=== PATIENT | male | born 1965 | race Caucasian/White ===

== ENCOUNTER 2021-05-18 12:56 | Outpatient (CLI) | payer BC, SELFPAY ==
--- NOTE | ~2021-05-18 | US_ITS ---
EXAMINATION: US FNA w image guidance DATE: 05/18/2021 14:08 INDICATION: Left parotid mass. TECHNIQUE: The procedure and its benefits and risks were discussed with the patient. Risks specifically discusse d included bleeding. The patient verbalized understanding of the risks and agreed to proceed. The lef t face was prepped and draped in the usual sterile manner. 1% lidocaine was used for local anesthesi a. 5 passes were made with a 25G needle into the lesion under ultrasound guidance. There were no im mediate complications. FINDINGS: Grayscale ultrasound images demonstrate needles advanced into a 2.0 x 1.6 x 1.3 cm hypoechoic mass in superficial left parotid gland for biopsy. IMPRESSION: 1. Ultrasound-guided fine needle aspiration of a left parotid mass. Reviewed, dictated and finalized at location A.
== END 2021-05-18 12:57 | disposition home or self-care (01) ==
PROVIDERS: PCP Nurse Practitioner Adult Health; Visit Provider Otolaryngology
DX: K11.8 Other diseases of salivary glands (principal)
CPT/HCPCS: 10005; 88173; 88305

== ENCOUNTER 2021-07-29 07:55 | Outpatient (CLI) | payer BC, SELFPAY ==
--- NOTE | 2021-07-29 07:59 | ECG_ITS ---
Measurements Intervals [place] Rate: 77 P: 52 LA: 188 QRS: 9 QRSD: 97 T: 17 QT: 359 QTc: 407 Interpretive Statements SINUS RHYTHM BASELINE ARTIFACT- I, II, AVR NORMAL ECG Electronically Signed On 07-29-2021 8:41:29 [employer]THLET[employer] by [place] D.O.
== END 2021-07-29 07:56 | disposition home or self-care (01) ==
LOC: ANHSURGERY 07:59
PROVIDERS: PCP Nurse Practitioner Adult Health; Visit Provider Otolaryngology
DX: F17.200 Nicotine dependence, unspecified, uncomplicated (principal); Z01.818 Encounter for other preprocedural examination
CPT/HCPCS: 93005

== ENCOUNTER 2021-08-03 02:47 | Day surgery (SDC) | payer BC, SELFPAY ==
[2021-07-27 10:10] VITALS: BMI 36.3
--- NOTE | 2021-07-27 10:16 | SUR.PREOP ---
Report to the Outpatient Waiting Room, entrance under the green pavilion located off [facility], at time 0745 on date _08/03/21 . OR Time: _0945 . - You and your visitor will be asked a series of questions to screen for COVID 19 for your protection. - A mask is required within the hospital. Preoperative COVID Testing Requirements: No Covid test needed - - Patient has positive COVID test result within last 90 days of surgery date. COVID RESULTS FAXED TO [facility] WITH POSITIVE TEST 07/10/21 Patients may have clear liquids (water, carbonated beverages, clear teas, apple juice) until 3 hours prior to surgery with a maximum of 20 ounces. - No food from midnight until time of surgery - Infants may have breast milk until 4 hours before surgery, infant formula 6 hours prior to surgery. - Children will be allowed to drink immediately following surgery. If applicable, please bring a bottle or sippy cup to assist with drinking. Juice, water, soda, and popsicles are readily available. For infants on formula, please bring formula the day of surgery. Pacifiers are allowed. Take the following medications with a SIP of water the morning of surgery: _LEVOTHYROXINE Medications to discontinue per physician __VITAMIN SUPPLEMENTS Date to take last dose____07/30/21 Please no make-up, nail irish, hairspray, perfume, deodorant, or body powder the day of surgery. No jewelry (including any body piercings) or valuables the day of surgery, leave them at home. Please take a shower or bath the night before, or the morning of, surgery with an antibacterial soap. Wear comfortable, loose fitting clothing. Children are encouraged to wear pajamas. - Jewelry must be removed prior to entering the operating room. Rings and piercings that are not removed may be cut off. - The hospital will not accept responsibility for valuables. - Please leave all valuables, including medications, at home the day of surgery. If you are going home after surgery, a licensed electric pile driver operator must drive you home. - NO public transportation without another adult. - We recommend that an adult stay with you for 24 hours following discharge. - We also recommend that you do not drive, make important decision, drink alcoholic beverages, or take any drugs that were not prescribed by your health care provider for at least 24 hours after your discharge time. For Pediatric surgeries, we recommend two adults accompany the child home (only one inside the building at this time). Follow any additional instructions given to you from your surgeon. Telephone instructions given to _CHANDLER VILLA and asked if any additional questions and then verbalized understanding. Patient advised to call surgeon office or pre surgery nurse liaison [phone] if any additional questions.
--- NOTE | 2021-07-27 10:21 | PC.NURSE ---
PT STATES COVID POSITIVE 07/10/21 .NO SYMPTOMS CURRENTLY. TO EMAIL RESULTS OF TESTING AND RELEASE FORM TO [facility].
[2021-08-03] VITALS (8 sets, daily range): BP systolic 108–138; BP diastolic 80–95; PULSE 66–81; RESP 11–20; TEMP 36.3–36.4; O2SAT 93–98
--- NOTE | 2021-08-03 09:11 | P.PNAN_ITS ---
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 Patient Data Age: 55 Gender: M Height: 1.8 m Weight: 118.18 kg Allergies Allergy/AdvReac Type Severity Reaction Status Date / Time iodine Allergy Severe Anaphylaxis Unverified 08/03/21 09:14 Penicillins Allergy Severe Anaphylaxis Verified 08/03/21 09:14 levofloxacin AdvReac Severe Nausea Verified 08/03/21 09:14 codeine AdvReac Mild Nausea Unverified 07/27/21 09:35 SHELLFISH Allergy Severe Anaphylaxis Uncoded 07/27/21 09:35 Home Medications Medication Instructions Recorded Confirmed Type fexofenadine [Mucinex Allergy] 180 mg PO DAILY 07/27/21 07/27/21 History levothyroxine 50 mcg PO DAILY 07/27/21 07/27/21 History tadalafil [Cialis] 5 mg PO DAILY 07/27/21 07/27/21 History zinc sulfate-vitamin C [Vitamin C 1 tablet PO DAILY 07/27/21 07/27/21 History Plus Zinc] EC07/29/21 NML EGG SR 77 Patient hx anesthesia problems: none Family hx anesthesia problems: none Results Review: All pre-operative results and documents have been reviewed as part of the pre-operative evaluation. [facility] Family History Family History Father Acute myocardial infarction Social History Social History Smoking status: Heavy tobacco smoker Tobacco type: cigarettes Additional smoking assessment comments: 1ppd x30 years Alcohol intake: current Substance use: current Substance use type: marijuana Other substance usage details: socially,smoking Living arrangements: with family Spiritual care concerns: No Exam Day of Procedure 08/03/21 09:11
[2021-08-03] MEDS: LACTATED RINGERS 1,000 ML 30 ML IV CONT (09:30)
--- NOTE | 2021-08-03 09:56 | SUR.PREOP ---
0915-PT AWARE SURGEON DELAYS SELF UNDETERMINED AMT OF TIME. STATES HE WILL KEEP S.O. UPDATED. 0945-PT AWARE SURGEON DELAYS SELF ADDITIONAL 1- 1 1/2 HOURS.
--- NOTE | 2021-08-03 11:22 | P.PNAN_ITS ---
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 Patient Data Age: 55 Gender: M Height: 1.8 m Weight: 119.6 kg Last Vital Signs Temp 36.3 C L 08/03/21 08:05 Pulse 81 08/03/21 08:05 Resp 20 08/03/21 08:05 BP 108/80 08/03/21 08:05 Pulse Ox 98 08/03/21 08:05 Allergies Allergy/AdvReac Type Severity Reaction Status Date / Time iodine Allergy Severe Anaphylaxis Unverified 08/03/21 09:14 Penicillins Allergy Severe Anaphylaxis Verified 08/03/21 09:14 levofloxacin AdvReac Severe Nausea Verified 08/03/21 09:14 codeine AdvReac Mild Nausea Unverified 07/27/21 09:35 SHELLFISH Allergy Severe Anaphylaxis Uncoded 07/27/21 09:35 Home Medications Medication Instructions Recorded Confirmed Type fexofenadine [Mucinex Allergy] 180 mg PO DAILY 07/27/21 08/03/21 History levothyroxine 50 mcg PO DAILY 07/27/21 08/03/21 History tadalafil [Cialis] 5 mg PO DAILY 07/27/21 07/27/21 History zinc sulfate-vitamin C [Vitamin C 1 tablet PO DAILY 07/27/21 08/03/21 History Plus Zinc] Patient hx anesthesia problems: none Family hx anesthesia problems: none Results Review: All pre-operative results and documents have been reviewed as part of the pre-operative evaluation. [facility] Surgical History Surgical History (Updated 08/03/21 @ 11:27 by Idris Armstrong MD) H/O inguinal hernia repair H/O myringotomy History of cholecystectomy Family History Family History Father Acute myocardial infarction Social History Social History Smoking status: Heavy tobacco smoker Tobacco type: cigarettes Additional smoking assessment comments: 1ppd x30 years Alcohol intake: current Substance use: current Substance use type: marijuana Other substance usage details: socially,smoking Living arrangements: with family Spiritual care concerns: No Anes - Eval Final PreProcedure Day of Procedure 08/03/21 11:22 Patient weight: obese Heart: regular rate and rhythm Lungs: clear to auscultation Airway: Mallampati scale class 1 Neurological: alert and oriented Last oral intake: >/= 8 hours ASA classification: III Emergent: no Anesthetic plan: proceed Anesthesia type and monitoring: general ETT and standard monitoring Results Review: All pre-operative results and documents have been reviewed as part of the pre-operative evaluation. Informed Consent: The patient's anesthetic plan and its attendant risks and benefits were discussed with the patient/family/POA. Questions were solicited and answers provided to the satisfaction of the patient/family/POA.
--- NOTE | 2021-08-03 11:52 | PM.IMHP ---
H&P: HPI History of Present Illness Date/Time: 08/03/21 11:52 Chief Complaint: left parotid mass Narrative: left tail of parotid mass, FNA consistent with warthin's tumor Review of Systems Review of Systems: All systems reviewed & are unremarkable except as noted in HPI and below PMFSH Surgical History Surgical History H/O inguinal hernia repair H/O myringotomy History of cholecystectomy Family History Family History Father Acute myocardial infarction Social History Social History Smoking status: Heavy tobacco smoker Tobacco type: cigarettes Additional smoking assessment comments: 1ppd x30 years Alcohol intake: current Substance use: current Substance use type: marijuana Other substance usage details: socially,smoking Living arrangements: with family Spiritual care concerns: No Meds Home Medications and Allergies Home Medications Medication Instructions Recorded Confirmed Type fexofenadine [Mucinex Allergy] 180 mg PO DAILY 07/27/21 08/03/21 History levothyroxine 50 mcg PO DAILY 07/27/21 08/03/21 History tadalafil [Cialis] 5 mg PO DAILY 07/27/21 07/27/21 History zinc sulfate-vitamin C [Vitamin C 1 tablet PO DAILY 07/27/21 08/03/21 History Plus Zinc] Allergies Allergy/AdvReac Type Severity Reaction Status Date / Time iodine Allergy Severe Anaphylaxis Unverified 08/03/21 09:14 Penicillins Allergy Severe Anaphylaxis Verified 08/03/21 09:14 levofloxacin AdvReac Severe Nausea Verified 08/03/21 09:14 codeine AdvReac Mild Nausea Unverified 07/27/21 09:35 SHELLFISH Allergy Severe Anaphylaxis Uncoded 07/27/21 09:35 Vital Signs Vital Signs - 24 hr 08/03/21 08:05 Temperature 36.3 C L Pulse Rate 81 Respiratory Rate 20 Blood Pressure 108/80 Pulse Oximetry 98 Exam Narrative: left 2cm tail of parotid mass, FNa c/w warthins tumor. Preop VII fully intact. 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 r/b/a reviewed, patient understands and agrees with proceeding. Refer to outpt H&P for full details.
--- NOTE | 2021-08-03 11:54 | WPDHPUPDATE1 ---
History and Physical Update Update Date/Time: 08/03/21 11:54 History and Physical has been reviewed, including an updated exam of the patient. There are NO changes in the patient's condition. Risks, benefits, and alternatives have been discussed and questions answered. Patient agrees to proceed with procedure.
[2021-08-03] MEDS: CLINDAMYCIN 600 MG/D5W 50 ML 600 MG/50 ML PIGGYBACK 100 MG IVPB (12:52)
[2021-08-03] MEDS: LIDO 1%/EPINEPHRINE 1:100,000 50 ML VIAL 20 ML INFILTRATE (13:58)
[2021-08-03] MEDS: MUPIROCIN 2% OINT 22 GM TUBE 1 APPLIC TOPICAL (14:09)
--- NOTE | 2021-08-03 14:15 | W.PM.PROC2 ---
Procedure Note - Detailed Date of Procedure 08/03/21 Pre-op Diagnosis neoplasm of Salivary gland Post-op Diagnosis same Procedure Performed Left superficial parotidectomy w/ facial nerve monitoring Surgeon Noel Chaudhry MD Anesthesia general Indications left parotid mass Findings Left tail of parotid mass. Facial nerve preserved and intact. Description of Procedure After informed consent was obtained the time out procedure was performed the patient was brought to the operating room placed on the operating table in the supine position. The patient was placed under general endotracheal anesthesia. A modified Gideon incision was marked out in the patient's left preauricular crease. 1% lidocaine with one 100,000 epinephrine was injected into the marked incision. The patient was prepped and draped in the usual fashion. A #15 scalpel was used to make the skin incision. This was carried down to the level of the greater auricular nerve.this nerve was dissected superiorly up to the patient's earlobe. The preauricular incision was also carried down to the level of the parotid fascia. The underlying tumor was easily palpated. Next the preauricular incision was carried down along the tragal cartilage and the tragal pointer using a fine dissector and bipolar electrocautery. The greater auricular nerve was preserved.? The posterior belly of the digastric muscle was identified after retracting the sternocleidomastoid muscle laterally. The main trunk of the facial nerve was identified in its normal anatomic position and preserved. The nerve intraoperative monitor was utilized throughout the case.? Next the facial nerve was dissected laterally to the pes and the upper lobe and lower divisions were identified. The superficial parotid gland containing the tumor was dissected away from the lateral portion of the facial nerve. Once the specimen was passed off the field the wound bed was carefully irrigated using warm saline solution, there is no evidence of any significant bleeding. The wound was then closed in layers using 3-0 Vicryl and 4-0. No drain was required. The patient was then awakened from general anesthesia, extubated and transferred to recovery in stable condition. Estimated Blood Loss 10 Drains No Packing No Pathology yes (left superficial parotidectomy) Complications No immediate complications Condition stable Disposition PACU
== END 2021-08-03 16:27 | disposition home or self-care (01) ==
PROVIDERS: PCP Nurse Practitioner Adult Health; Visit Provider Otolaryngology
PROC: (CPT 42410; principal; 2021-08-03 10:00)
DX: D11.0 Benign neoplasm of parotid gland (principal); F17.210 Nicotine dependence, cigarettes, uncomplicated; F12.90 Cannabis use, unspecified, uncomplicated; E66.9 Obesity, unspecified; Z68.36 Body mass index [BMI] 36.0-36.9, adult
CPT/HCPCS: 42415; 88305; A9270; J0330; J1100; J2250; J2704; J3010; J7120

== ENCOUNTER 2023-02-18 08:00 | Outpatient (CLI) | payer BC, SELFPAY ==
--- NOTE | ~2023-02-18 | CT_ITS ---
EXAMINATION: CT abdomen pelvis wo con DATE: 02/18/2023 08:23 INDICATION: Gross hematuria TECHNIQUE: Computed tomography (CT) of the abdomen and pelvis was performed without intravenous contr ast. Automated exposure control and iterative reconstruction technique were employed. Exam dose: 707 .14 mGy-cm total exam DLP. COMPARISON: 02/18/2023 KUB FINDINGS: There is a couple of thin discoid opacities in the middle lobe an one in the left lower lob e, likely mild scarring. No infiltrate or consolidation or pulmonary mass lesion is noted in the incl uded lower lung zones. Normal heart size. No pericardial or pleural effusion. Status post cholecystectomy. The liver, spleen, pancreas, and adrenal glands and kidneys appear lara l on this limited noncontrast examination. No bile duct or pancreatic duct dilatation. No urinary tract calculus or hydroureteronephrosis. Moderate diffuse thickening of the wall of the urinary bladder. Mild prostate enlargement and calcifi cation. There is atherosclerotic calcification of the abdominal aorta and iliac arteries; no abdominal aortic aneurysm. No intraperitoneal or retroperitoneal or pelvic mass lesion or lymphadenopathy is noted. There are some nondilated small bowel segments with air-fluid levels, which might be secondary to ent eritis or mild adynamic ileus. No intraperitoneal free air. Normal appendix. Diverticulosis of the colon; no CT evidence of diverticulitis. Small fat-containing umbilical hernia. Degenerative spurring of the lower thoracic spine. Severe degenerative disc disease at L5-S1. IMPRESSION: Limited noncontrast examination revealing no urinary tract calculus or hydroureteronephr osis. Considering the history of gross hematuria, consider CT examination with IV contrast material which m ight detect urothelial transitional carcinoma not detectable on limited noncontrast examination. Diverticulosis of the colon; no CT evidence of diverticulitis Status post cholecystectomy Reviewed, dictated and finalized at [facility]. Reviewed, dictated and finalized at location [facility]. IMPRESSION: Limited noncontrast examination revealing no urinary tract calculu s or hydroureteronephrosis. Considering the history of gross hematuria, consider CT examination with IV con trast material which might detect urothelial transitional carcinoma not detecta ble on limited noncontrast examination. Diverticulosis of the colon; no CT evidence of diverticulitis Status post cholecystectomy
--- NOTE | ~2023-02-18 | XR_ITS ---
Supine and upright views of the abdomen Clinical history: Hematuria Findings: Bowel gas pattern is nonspecific. No evidence for obstruction or free air. No abnormal mass lesion or calcification is seen. Cholecystectomy clips present. Osseous structures are intact. Impression: No significant abnormality is seen. Reviewed, dictated and finalized at [facility]. Impression: No significant abnormality is seen.
== END 2023-02-18 08:01 | disposition home or self-care (01) ==
PROVIDERS: Visit Provider Nurse Practitioner Adult Health
DX: R31.0 Gross hematuria (principal); K57.30 Diverticulosis of large intestine without perforation or abscess without bleeding; Z90.49 Acquired absence of other specified parts of digestive tract
CPT/HCPCS: 74018; 74176